=== PATIENT | male | born 1955 | race Caucasian/White ===

== ENCOUNTER 2017-02-21 23:50 | Inpatient (IN) | payer MEDICARE ==
[~2017-02-21] VITALS: Ht 175.3 cm; Wt 112.4 kg
--- NOTE | ~2017-02-21 | ECH ---
Transthoracic Echocardiography Report (TTE) Demographics Patient Name TREE MCKEON Date of Study 02/23/2017 STEVEN Patient Number [id number] Visit Number [id number] Date of 1955 Room Number 428 Accession Number [id number] Gender Male Age 61 year(s) Referring Jackie Robyn Pet Care Worker Neena Hardy [facility] Physician Physician Interpreting Hue COSTA Vector Control Specialist Physician Rodolfo Supervising Ordering Physician Hue COSTA MD/MERLIN Reynolds Nurse Stress Cleaning And Washing Equipment Operator Conclusions Contractility Score Summary At rest the following contractility abnormalities were noted: Hypokinesis of the Mid infero-septal, the Apical septal and the Apical anterior segments. Contractility of all other segments appeared normal. Summary Technically fair exam. The estimated left ventricular ejection fraction is 60-65%. Mild segmental wall motion abnormalities. There is mild aortic regurgitation by color Doppler. The ascending aorta appears mildly dilated. The maximum diameter measures 3.8 cm. Recommendation The patient was given the results of the exam during their hospital stay. Procedure Type of Study TTE procedure:Echo Complete SF. Procedure Date Date: 02/23/2017 Start: 09:03 AM Technical Quality: Fair due to body habitus. Indications:Atypical Chest Pain, Coronary artery disease and Hypertension. Additional Indications:pacemaker Appropriate Use Criteria: 9 Height: 69 inches Weight: 248 pounds BSA: 2.26 m Rhythm: Paced HR: 61 bpm BP: 145/94 mmHg M-Mode/2D Measurements LV Diastolic Dimension: 4.59 cm LV Systolic Dimension: 2.76 cm LV Septum Diastolic: 0.91 cm LV PW Diastolic: 0.98 cm AO Root Dimension: 3.37 cm Cardiac Output: 4.59 l/min LA Dimension: 2.96 cm Cardiac Index: 2.03 l/min*m RV Diastolic Dimension: 2.5 cm LA volume index: 16 ml/m LVOT: 2.01 cm LVOT VTI: 23.75 cm LV Stroke volume: 75.32 ml LV Stroke volume index: 33.33 ml/m Doppler Measurements AV Peak Velocity: 1.22 m/s MV Peak E-Wave: 0.7 m/s AV Peak Gradient: 5.95 mmHg MV Peak A-Wave: 0.63 m/s AV Mean Gradient: 4.08 mmHg MV E/A Ratio: 1.11 LVOT Peak Velocity: 1.08 m/s MV P1/2t: 57.8 msec AV Area (Continuity):2.87 cm MV Deceleration Time: 199.3 msec TR Velocity:2.28 m/s MV Area (PHT): 3.81 cm TR Gradient:20.82 mmHg PV Peak Velocity: 1.08 m/s Estimated RAP:5 mmHg PV Peak Gradient: 4.63 mmHg Estimated RVSP: 26 mmHg Estimated PASP: 25.82 mmHg Findings Left Ventricle The left ventricle is normal in size . Diastolic assessment reveals normal relaxation. Right Ventricle Normal right ventricle structure and function. Left Atrium Normal left atrial size. Right Atrium Normal right atrial size. Mitral Valve Normal mitral valve structure and function. Aortic Valve Normal aortic valve structure and function. There is mild aortic regurgitation by color Doppler. Tricuspid Valve Normal tricuspid valve structure and function. Mild tricuspid regurgitation by color Doppler. Pulmonic Valve Normal pulmonic valve structure and function. Pericardial Effusion No evidence of pericardial effusion. Miscellaneous The ascending aorta appears mildly dilated. The maximum diameter measures 3.8 cm. Pleural Effusion No evidence of pleural effusion. Contractility Score LV regional wall motion:(0-Non visualized 1-Normal 2-Hypokinesis 3-Akinesis 4-Dyskinesis 5-Aneurysm) Signature
--- NOTE | ~2017-02-21 | CST ---
Cardiac Perfusion Imaging Demographics Patient Name LINDA LEAVITT Gender Male STEVEN Patient Number [id number] Race Visit Number [id number] Ethnicity Corporate ID Room Number 431 Accession Number [id number] Height 69 inches Date of 1955 Weight 248 pounds Age 61 year(s) BSA 2.26 m Referring Physician Jackie Carlson BMI 36.62 kg/m Interpreting Physician [facility] Umair Date of study 02/25/2017 Hue Reynolds Supervising MD/NASREENP Hue PARRA Technologist Johanny Reynolds Ordering Physician Hue COSTA Stress Bita Reynolds senior electronics technician Stress ECG Reading [facility] Nurse Davey Hernandez Physician Hue Reynolds The procedure was explained in detail to the patient. Risks, complications and alternative treatments were reviewed. Written consent was obtained. Medications Reviewed with Patient prior to Procedure. Procedure Procedure Type: Nuclear Stress Test:Pharmacological, Cardiac Study SF Procedure Start time: 02/25/2017 08:00 Indications: Chest pain and History of CAD. Risk Factors The patient risk factors include:prior PCI;peripheral arterial disease, obesity, physical activity, former tobacco use, treated hypercholesterolemia, treated hypertension, chronic lung disease, dyslipidemia, prior [place] and ( years not smokin). Conclusions Summary Perfusion Images: The overall quality of the study is good. Left ventricular cavity is noted to be normal on the stress and normal on the rest images. There is no evidence of abnormal lung activity. The right ventricle is not visualized an cannot be assessed. Stress SPECT images reveal a medium sized area of mild to moderate decreased isotope uptake involving the entire inferior wall and apex of the left ventricle. . Rest SPECT images reveal a medium sized area of mild to moderate decreased isotope uptake of the entire inferior wall . Gated SPECT imaging reveals normal thickening and normal wall motion. Overall left ventricular ejection fraction was calculated to be normal at 63%. Impression 1. No ECG evidence of ischemia with Lexiscan infusion. 2. Myocardial perfusion imaging is mildly abnormal. 3. The images reveal a fixed defect in the entire inferior wall with normal wall motion consistent with attenuation. 4. There is a very small mild reversible defect in the apex consistent with minimal ischemia. 5. Overall left ventricular systolic function was normal. 6. This is overall a low risk stress test. 7. There are no previous studies for comparison . Stress Protocols Resting ECG Atrial paced rhythm. Normal ST segments. Resting HR:61 bpm Resting BP:162/96 mmHg Stress Protocol:Pharmacologic Predicted HR: 157 bpm Test duration: 06:00 min Reason for termination:Infusion complete ECG Findings No ECG changes suggestive of ischemia. Arrhythmias Rare PAC's. Symptoms Dyspnea. Complications Procedure complication: None. Stress Interpretation No ECG evidence of ischemia with Lexiscan infusion. Imaging Results Applied corrections Study artifacts 1) Motion - Motion correction applied Summed scores - Summed stress score: 0 - Summed rest score: 1 - Summed difference score: -1 Stress ejection Ejection fraction:63 % EDV :141 ml ESV :52 ml Stroke volume :89 ml LV mass :149 gr Imaging Protocols Rest Stress Isotope:Tc99m Myoview IV Isotope: Tc99m Myoview IV Isotope dose:10.5 mCi Isotope dose:31.9 mCi Date:02/25/2017 06:35 Date:02/25/2017 08:10 Technique: SPECT Technique: Gated Supine SPECT Supine IV remains in place after procedure. Scan Time:45-60 minutes post Scan Time:45-60 minutes post injection injection Procedure Medications - Regadenoson (Lexiscan) 0.4 mg IV over 10-15 sec. I.V. 0.4 mg. Medications administered per verbal order and read back to physician prior to administration. Medical History Admission Data Admission date: 02/22/2017 Admission Time: 11:05 Hospital Status: Inpatient. Signatures
--- NOTE | 2017-02-22 04:53 | ER ---
ADMIT: 02/21/2017 RM/LOC: ER [facility] MR#: [id number] [address] [facility] [address] [place], [place] [address] TREE MCKEON [address] [place] [id number] / Emergency Room Report SEX: M AGE: 61 : 1955 DATE: 02/21/2017 CHIEF COMPLAINT: Chest pain. HISTORY OF PRESENT ILLNESS: The patient is a 61-year-old, homeless male, en route to [place] from [place], having coffee at [employer] where he developed substernal chest pain described as sharp, radiating into his left arm with no nausea, diaphoresis, exacerbating or relieving maneuvers. Paramedics treated with aspirin, nitroglycerin, morphine with no improvement. EKG at the scene showed sinus rhythm without ST-T or Q-wave change. Cardiac risk factors include previous cardiac stents x7, most recently in 2013 in [place]; factor V Leiden deficiency; chronically anticoagulated with multiple DVTs; right upper and lower extremity IVC filter. The patient states he is compliant with his medications, but is not following a salt-restricted diet. PAST MEDICAL HISTORY: ILLNESSES: Coronary artery disease, hypertension, hyperlipidemia, DVT, chronic kidney disease, bipolar with cognitive impairment, seizure disorder, COPD, factor V deficiency. OPERATIONS: PCI stent x7, most recently in 2013, [facility]; appendectomy; port; IVC filter. ALLERGIES: PHENOBARB, CODEINE, LOVENOX, AND DEPAKOTE. MEDICATIONS: Please see nurse's MAR. SOCIAL HISTORY: Quit smoking in 2000, after smoking 10 cigars a day and a bag of pipe tobacco. No alcohol or illicit drugs. Disabled, lives alone. FAMILY HISTORY: Positive for coronary artery disease. REVIEW OF SYSTEMS: A 10-point review of systems negative for all other systems, illnesses, or operations except as outlined above. PHYSICAL EXAMINATION: VITAL SIGNS: Temperature 96.5, pulse 62, respirations 16, BP 144/79, SaO2 of 96% on room air. GENERAL: Nontoxic, non-diaphoretic without jaundice or icterus. HEENT: Normocephalic. No evidence of epistaxis, rhinorrhea, or otorrhea. NECK: Supple without lymphadenopathy or thyromegaly. CHEST: Breath sounds equal with expiratory wheeze noted throughout. HEART: Regular rate and rhythm with grade 3 pitting edema and contusion noted in left anterior barry. No evidence of cellulitis or Homans sign. NEURO: EOMI. PERRLA. No evidence of drift, dysarthria, or ataxia. Gait not assessed. MENTAL STATUS: Alert, oriented, and cooperative without delusions, hallucinations, or abnormal thought content. MEDICAL DECISION MAKING: The patient was admitted in 2005, by Dr. Maxwell for very similar story. The patient was given GI cocktail, DuoNeb aerosol x2, ADMIT: 02/21/2017 RM/LOC: [facility] MR#: [id number] [address] [place] [address] TREE MCKEON [address] [place] [id number] / Emergency Room Report SEX: M AGE: 61 : 1955 Solu-Medrol, magnesium, and Protonix with improvement of pain and respiratory distress. EKG showed sinus rhythm without ST-T or Q-wave change, unchanged from 2005. Chest x-ray shows mild CHF. Hemoglobin 9.5, down from 2006 at 11; CRP 0.29; lactic 0.6; lipase 206; creatinine 1.6; troponin less than 0.015; INR 1.93; D-dimer 0.35; BNP 334; EtOH 5. Tox screen pending. The patient has atypical chest pain, but high risk. Discussed case with Dr. Mejia, who agrees to admit and gave orders to nursing staff. DIAGNOSES: 1. Atypical chest pain with multiple high-risk diagnoses: multiple percutaneous coronary intervention stents, factor V deficiency, chronically anticoagulated with previous DVT at right upper and lower extremities, and IVC filter. 2. Chronic obstructive pulmonary disease. 3. Seizure disorder. RECOMMENDATION: Admit inpatient telemetry for Dr. Mejia. ADMISSION/DISCHARGE CONDITION: Stable. Audi Chavez MD/ adelso JOB #: [id number] CC: Audi Chavez MD, Attending Physician Robyn Mejia MD
--- NOTE | 2017-02-23 23:44 | NUR ---
Pt was walking in halls and at approx. 2240 and he was found face down on the floor near the nurses station. Appeared to be having seizure activity. Pt was placed on O2 by mask, assessed, and a rapid response was called. Dr. Gann was notified. She will be in to see him. Pt was stabliszed and transferred to ICU #[id number]. Report was given to RN and cares were turned over to the ICU staff.
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
[2017-02-27] MEDS ORDERED: COUMADIN1 MG PO (19:26)
[2017-02-27] MEDS ORDERED: LAMICTAL150 MG PO (19:26)
[2017-02-27] MEDS ORDERED: KEPPRA DPS500 MG PO (19:26)
[2017-02-27] MEDS ORDERED: OXY-CONTIN10 MG PO (19:26)
[2017-02-27] MEDS ORDERED: LIPITOR DPS20 MG PO (19:27)
[2017-02-27] MEDS ORDERED: ZESTRIL DPS20 MG PO (19:27)
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
== END 2017-02-27 10:30 | disposition home or self-care (01) | DRG 313 ==
LOC: ER 23:50 → 3ICU 02-22 01:19 → 4PCU 02-22 01:19 → 3ICU 02-22 11:05 → 4PCU 02-25 00:59
PROVIDERS: ADMIT Family Medicine
DX: R07.89 Other chest pain (principal); I25.2 Old myocardial infarction; N17.9 Acute kidney failure, unspecified; D68.51 Activated protein C resistance; N18.2 Chronic kidney disease, stage 2 (mild); I25.10 Atherosclerotic heart disease of native coronary artery without angina pectoris; E78.5 Hyperlipidemia, unspecified; R25.1 Tremor, unspecified; G40.901 Epilepsy, unspecified, not intractable, with status epilepticus; I12.9 Hypertensive chronic kidney disease with stage 1 through stage 4 chronic kidney disease, or unspecified chronic kidney disease; I73.9 Peripheral vascular disease, unspecified; S80.211A Abrasion, right knee, initial encounter; S00.81XA Abrasion of other part of head, initial encounter; S80.212A Abrasion, left knee, initial encounter; W19.XXXA Unspecified fall, initial encounter; F31.9 Bipolar disorder, unspecified; J44.9 Chronic obstructive pulmonary disease, unspecified; Z87.891 Personal history of nicotine dependence; Z59.0 Homelessness; Z82.49 Family history of ischemic heart disease and other diseases of the circulatory system; Z86.718 Personal history of other venous thrombosis and embolism; Z79.01 Long term (current) use of anticoagulants; Z95.5 Presence of coronary angioplasty implant and graft; Z95.0 Presence of cardiac pacemaker